=== PATIENT | female | born 1965 | race Caucasian/White ===

== ENCOUNTER 2017-10-19 05:20 | Inpatient (IN) | payer BC ==
[2017-10-19] MEDS ORDERED: Celecoxib 200 MG Cap PO ONE (05:30)
[2017-10-19] MEDS ORDERED: Scopolamine 1.5 MG Transdermal Patch TOP SCH (05:30)
[2017-10-19] MEDS ORDERED: Acetaminophen 500 MG Tab PO ONE (05:30)
[2017-10-19] MEDS ORDERED: Gabapentin 300 MG Cap PO ONE (05:30)
[2017-10-19] MEDS ORDERED: Dextrose 5%-Lactated Ringers 1,000 ML IV SCH (06:00)
[2017-10-19] MEDS ORDERED: cefOXitin 2 GM Vial ONE (06:56)
[2017-10-19] MEDS ORDERED: fentaNYL 250 MCG/5 ML SDV ONE ×2 (07:00→08:27)
[2017-10-19] MEDS ORDERED: Dexamethasone 4 MG/ML SDV ONE (07:01)
[2017-10-19] MEDS ORDERED: Neostigmine Methylsulfate 1 MG/ML 5 ML Syringe ONE (07:01)
[2017-10-19] MEDS ORDERED: Ondansetron 4 MG/2 ML SDV ONE (07:01)
[2017-10-19] MEDS ORDERED: Rocuronium 50 MG/5 ML Vial ONE ×2 (07:01→08:11)
[2017-10-19] MEDS ORDERED: Propofol 200 MG/20 ML SDV ONE (07:01)
[2017-10-19] MEDS ORDERED: Midazolam 1 MG/ML 2 ML SDV ONE (07:01)
[2017-10-19] MEDS ORDERED: Glycopyrrolate 0.2 MG/ML 5 ML MDV ONE (07:01)
[2017-10-19] MEDS ORDERED: Lidocaine 2% 100 MG/5 ML Syringe IVPUSH ONE (07:15)
[2017-10-19] MEDS ORDERED: Ropivacaine 56 ML, Dexamethasone 8 MG, EPINEPHrine 0.4 MG, Sodium Chloride 0.9% 21.6 ML NERVRT ONE ×4 (07:15)
[2017-10-19] MEDS ORDERED: Lidocaine 0.4%/D5W 2 GM/500 ML BAG IV SCH (07:15)
[2017-10-19] MEDS ORDERED: Ketamine 500 MG/5 ML MDV IV ONE (07:15)
[2017-10-19] MEDS ORDERED: cefOXitin 2 GM in Sodium Chloride 0.9% 50 ML IV ONE (07:15)
[2017-10-19] MEDS ORDERED: Lactated Ringers 1,000 ML ONE (07:21)
[2017-10-19] MEDS ORDERED: hydrOXYzine HCl 100 MG/2 ML SDV IM ONE (09:52)
[2017-10-19] MEDS ORDERED: fentaNYL 100 MCG/2 ML SDV IVPUSH ONE (10:21)
[2017-10-19] MEDS ORDERED: diphenhydrAMINE 50 MG/ML SDV IVPUSH PRN (12:00)
[2017-10-19] MEDS ORDERED: Ondansetron 4 MG/2 ML SDV IVPUSH PRN (12:00)
[2017-10-19] MEDS ORDERED: Labetalol 20 MG/4 ML Syringe IVPUSH PRN (12:00)
[2017-10-19] MEDS ORDERED: hydrOXYzine HCl 100 MG/2 ML SDV IM PRN (12:00)
[2017-10-19] MEDS ORDERED: Metoclopramide 10 MG/2 ML SDV IVPUSH PRN (12:00)
[2017-10-19] MEDS: cefOXitin 2 GM in Sodium Chloride 0.9% 50 ML IV SCH ×2 (12:29→17:29)
[2017-10-19] MEDS: Gabapentin 250 MG/5 ML Solution ML 470 ML Bottle PO SCH ×2 (13:15→20:16)
[2017-10-19] MEDS ORDERED: Pantoprazole 40 MG Vial IVPUSH SCH (14:00)
[2017-10-19] MEDS: Acetaminophen Soln 650 MG/20.3 ML UD Cup PO SCH ×2 (15:41→21:03)
[2017-10-19] MEDS: MVI, Adult with Vitamin K 10 ML, Thiamine 200 MG, Chromium/Copper/Mang/Selen/Zn 1 ML in... IV SCH ×4 (15:45)
[2017-10-19] MEDS: Heparin Sodium 5,000 Units/ML Vial SUBCUT SCH (17:29)
[2017-10-19] MEDS: HYDROmorphone 1 MG/ML Syringe IVPUSH PRN (21:30)
[2017-10-19] MEDS: Dextrose 5%-Lactated Ringers 1,000 ML IV SCH (21:33)
[2017-10-20] MEDS: cefOXitin 2 GM in Sodium Chloride 0.9% 50 ML IV SCH ×2 (00:03→06:07)
[2017-10-20] MEDS: HYDROmorphone 1 MG/ML Syringe IVPUSH PRN ×3 (00:48→08:29)
[2017-10-20] MEDS ORDERED: Iohexol 647 MG/ML 50 ML SDV PO STA (02:19)
[2017-10-20] MEDS: Acetaminophen Soln 650 MG/20.3 ML UD Cup PO SCH ×4 (04:05→22:01)
[2017-10-20] MEDS: Dextrose 5%-Lactated Ringers 1,000 ML IV SCH ×2 (04:06→13:02)
[2017-10-20] MEDS: Heparin Sodium 5,000 Units/ML Vial SUBCUT SCH ×2 (05:18→17:22)
[2017-10-20] MEDS ORDERED: Ondansetron 4 MG Tab.DIS PO PRN (07:01)
[2017-10-20] MEDS ORDERED: Albuterol/Ipratropium 3.0-0.5 MG/3 ML Neb Soln NEB PRN (07:04)
[2017-10-20] MEDS ORDERED: VARENICLINE PO SCH (07:15)
[2017-10-20] MEDS: Albuterol/Ipratropium 3.0-0.5 MG/3 ML Neb Soln NEB SCH ×4 (07:23→20:38)
--- NOTE | 2017-10-20 07:59 | PCM.SURGPN ---
- General Info Date of Service: 10/20/17 Date of Surgery/Procedure: 10/19/17 POD#: 1 Post-Op Diagnosis: Dawna-en-Y gastric bypass Functional Status: Reports: Pain Controlled, Tolerating Diet, Ambulating, Urinating, New Symptoms (Productive cough), Incentive Spirometry - Review of Systems HEENT: Reports: No Symptoms Pulmonary: Reports: Cough, Sputum Cardiovascular: Reports: No Symptoms Gastrointestinal: Reports: No Symptoms Genitourinary: Reports: No Symptoms Musculoskeletal: Reports: No Symptoms Neurological: Reports: No Symptoms, Weakness (as reaction to lidocaine, now improved) Psychiatric: Reports: No Symptoms - Patient Data Vitals - Most Recent: Last Vital Signs Temp 97.6 F 10/20/17 04:59 Pulse 95 10/20/17 07:29 Resp 16 10/20/17 06:05 BP 134/84 10/20/17 06:05 Pulse Ox 100 10/20/17 07:34 Weight - Most Recent: 244 lb 3.2 oz I&O - Last 24 Hours: Intake & Output 10/19/17 10/20/17 10/20/17 22:59 06:59 14:59 Intake Total 970 2100 Output Total 255 955 Balance 715 1145 Med Orders - Current: Current Medications Acetaminophen (Tylenol) 650 mg PO Q6H [facility] Last Admin: 10/20/17 04:05 Dose: 650 mg Albuterol/Ipratropium (Duoneb 3.0-0.5 Mg/3 Ml) 3 ml NEB QIDRT [facility] Last Admin: 10/20/17 07:23 Dose: 3 ml Albuterol/Ipratropium (Duoneb 3.0-0.5 Mg/3 Ml) 3 ml NEB ASDIRECTED PRN PRN Reason: WHEEZING Aspirin (Ecotrin) 325 mg PO DAILY [facility] Celecoxib (Celebrex) 200 mg PO DAILY@0800 [facility] Cyanocobalamin (Vitamin B12) 1,000 mcg IM ONETIME ONE Stop: 10/21/17 09:01 Diphenhydramine HCl (Benadryl) 25 - 50 mg IVPUSH Q4H PRN PRN Reason: ITCHING Gabapentin (Neurontin) 300 mg PO TID [facility] Last Admin: 10/19/17 20:16 Dose: 300 mg Heparin Sodium (Porcine) (Heparin Sodium) 5,000 units SUBCUT Q12H [facility] Last Admin: 10/20/17 05:18 Dose: 5,000 units Hydromorphone HCl (Dilaudid) 1 mg IVPUSH Q1H PRN PRN Reason: Pain Last Admin: 10/20/17 04:33 Dose: 1 mg Hydromorphone HCl (Dilaudid) 2 - 4 mg PO Q4H PRN PRN Reason: Pain Hydroxyzine HCl (Vistaril) 75 - 100 mg IM Q4H PRN PRN Reason: pain Dextrose/Lactated Ringer's (Dextrose 5%-Lactated Ringers) 1,000 mls @ 175 mls/ hr IV ASDIRECTED [facility] Last Admin: 10/20/17 04:06 Dose: 175 mls/hr Multivitamins/Minerals 10 ml/Thiamine HCl 200 mg/ Chromium/Copper/Manganese/ Seleni/Zn 1 ml/ Dextrose/Lactated Ringer's 1,013 mls @ 175 mls/hr IV DAILY@ 1600 [facility] Last Admin: 10/19/17 15:45 Dose: 175 mls/hr Labetalol HCl (Normodyne) 5 - 15 mg IVPUSH Q1H PRN PRN Reason: SBP over 160 OR DBP over 95 Metoclopramide HCl (Reglan) 10 mg IVPUSH Q6H PRN PRN Reason: NAUSEA NOT CONTROL BY ZOFRAN Miscellaneous Information (Remove Patch) 1 ea TRDERM ONETIME ONE Stop: 10/21/17 10:01 Scopolamine Patch (Check) 1 each TOP DAILY [facility] Stop: 10/21/17 12:01 Ondansetron HCl (Zofran) 4 mg IVPUSH Q4H PRN PRN Reason: Nausea/Vomiting Last Admin: 10/20/17 05:31 Dose: 4 mg Ondansetron HCl (Zofran Odt) 4 mg PO Q4H PRN PRN Reason: Nausea/Vomiting Pantoprazole Sodium (Protonix Iv) 40 mg IVPUSH Q24H [facility] Last Admin: 10/19/17 13:15 Dose: 40 mg Scopolamine (Transderm-Scop) 1.5 mg TOP Q72H [facility] Stop: 10/21/17 10:00 Last Admin: 10/19/17 05:53 Dose: 1.5 mg Discontinued Medications Acetaminophen (Tylenol Extra Strength) 1,000 mg PO ONETIME ONE Stop: 10/19/17 05:31 Last Admin: 10/19/17 05:53 Dose: 1,000 mg Cefoxitin Sodium (Mefoxin) Confirm Administered Dose 2 gm .ROUTE .STK-MED ONE Stop: 10/19/17 06:57 Last Admin: 10/19/17 07:58 Dose: 2 gm Celecoxib (Celebrex) 200 mg PO ONETIME ONE Stop: 10/19/17 05:31 Last Admin: 10/19/17 05:53 Dose: 200 mg Ropivacaine 56 ml/Dexamethasone 8 mg/Epinephrine HCl 0.4 mg/ Sodium Chloride 21.6 ml 0 ml NERVRT ONETIME ONE Stop: 10/19/17 07:16 Last Admin: 10/19/17 07:49 Dose: 2 syringe Dexamethasone (Dexamethasone) Confirm Administered Dose 4 mg .ROUTE .STK-MED ONE Stop: 10/19/17 07:02 Fentanyl (Sublimaze) Confirm Administered Dose 250 mcg .ROUTE .ST-MED ONE Stop: 10/19/17 07:01 Fentanyl (Sublimaze) Confirm Administered Dose 250 mcg .ROUTE .ST-MED ONE Stop: 10/19/17 08:28 Fentanyl (Sublimaze) 50 mcg IVPUSH ONETIME ONE Stop: 10/19/17 10:22 Last Admin: 10/19/17 10:24 Dose: 50 mcg Gabapentin (Neurontin) 300 mg PO ONETIME ONE Stop: 10/19/17 05:31 Last Admin: 10/19/17 05:53 Dose: 300 mg Glycopyrrolate (Robinul) Confirm Administered Dose 1 mg .ROUTE .STK-MED ONE Stop: 10/19/17 07:02 Hydroxyzine HCl (Vistaril) 100 mg IM ONETIME ONE Stop: 10/19/17 09:53 Last Admin: 10/19/17 09:58 Dose: 100 mg Dextrose/Lactated Ringer's (Dextrose 5%-Lactated Ringers) 1,000 mls @ 100 mls/ hr IV ASDIRECTED [facility] Last Admin: 10/19/17 06:53 Dose: 100 mls/hr Cefoxitin Sodium 2 gm/ Sodium (Chloride) 50 mls @ 100 mls/hr IV ONETIME ONE Stop: 10/19/17 07:44 Last Admin: 10/19/17 07:17 Dose: 100 mls/hr Lidocaine HCl/Dextrose (Lidocaine 2 Gm/D5w 500 Ml) 2 gm in 500 mls @ 30 mls/hr IV .[id number] [facility] PRN Reason: 2 MG/MIN Stop: 10/20/17 10:00 Last Admin: 10/19/17 12:56 Dose: Not Given Ketamine HCl 100 mg/ Sodium (Chloride) 100 mls @ 15.7 mls/hr IV ASDIRECTED [facility] Stop: 10/19/17 09:15 Lactated Ringer's (Ringers, Lactated) Confirm Administered Dose 1,000 mls @ as directed .ROUTE .STK-MED ONE Stop: 10/19/17 07:22 Cefoxitin Sodium 2 gm/ Sodium (Chloride) 50 mls @ 100 mls/hr IV Q6H [facility] Stop: 10/20/17 06:59 Last Admin: 10/20/17 06:07 Dose: 100 mls/hr Iohexol (Omnipaque-300) 50 ml PO .ASDIRECTED [facility] Stop: 10/20/17 02:20 Last Admin: 10/20/17 02:27 Dose: 50 ml Ketamine HCl (Ketalar) 26 mg IV ONETIME ONE Stop: 10/19/17 07:16 Last Admin: 10/19/17 12:56 Dose: Not Given Lidocaine HCl (Xylocaine 2%) 114 mg IVPUSH ONETIME ONE Stop: 10/19/17 07:16 Last Admin: 10/19/17 12:57 Dose: Not Given Midazolam HCl (Versed 1 Mg/Ml) Confirm Administered Dose 2 mg .ROUTE .STK-MED ONE Stop: 10/19/17 07:02 Neostigmine Methylsulfate (Neostigmine) Confirm Administered Dose 5 mg .ROUTE .STK-MED ONE Stop: 10/19/17 07:02 Ondansetron HCl (Zofran) Confirm Administered Dose 4 mg .ROUTE .STK-MED ONE Stop: 10/19/17 07:02 Propofol (Diprivan 20 Ml) Confirm Administered Dose 200 mg .ROUTE .STK-MED ONE Stop: 10/19/17 07:02 Rocuronium Hurley (Zemuron) Confirm Administered Dose 50 mg .ROUTE .STK-MED ONE Stop: 10/19/17 07:02 Rocuronium [place]ley (Zemuron) Confirm Administered Dose 50 mg .ROUTE .STK-MED ONE Stop: 10/19/17 08:12 - Exam Wound/Incisions: Healing Well, Drainage (90 mL serosanguinous fluid in AQUILINO) Quality Assessment: Supplemental Oxygen General: Alert, Oriented, No Acute Distress Neck: Supple Lungs: Wheezing (inspiratory and expiratory throughout all lung [place]) Cardiovascular: Regular Rate, Regular Rhythm, No Murmurs GI/Abdominal Exam: Normal Bowel Sounds Skin: Warm, Dry, Intact Neurological: No New Focal Deficit Psy/Mental Status: Alert, Normal Affect, Normal Mood - Problem List Review Problem List Initiated/Reviewed/Updated: Yes - My Orders Last 24 Hours: Active Orders 24 hr Category Date Time Status Patient Status [ADT] Routine ADT 10/19/17 09:20 Active Ambulate [RC] QID Care 10/19/17 11:52 Active Cardiac Monitoring Discontinue [RC] Click to Edit Care 10/20/17 09:00 Active Cardiac Monitoring [RC] .As Directed Care 10/19/17 11:52 Active Communication Order [RC] ASDIRECTED Care 10/20/17 06:56 Active Communication Order [RC] ASDIRECTED Care 10/21/17 04:00 Active Communication Order [RC] Q4H Care 10/19/17 11:52 Active Communication Order [RC] ROUTINE Care 10/19/17 11:52 Active Drain Management [RC] ASDIRECTED Care 10/19/17 11:52 Active Insert Urinary Catheter [OM.PC] Per Unit Routine Care 10/19/17 11:52 Ordered Intake and Output [RC] ASDIRECTED Care 10/19/17 11:52 Active May Shower [RC] ASDIRECTED Care 10/20/17 06:56 Active Notify Provider Intake and Out [RC] ASDIRECTED Care 10/19/17 11:52 Active Notify Provider [RC] PRN Care 10/19/17 11:52 Active Oxygen Therapy [RC] ASDIRECTED Care 10/19/17 11:52 Active Pulse Oximetry [RC] ASDIRECTED Care 10/19/17 11:52 Active RT Aerosol Therapy [RC] ASDIRECTED Care 10/20/17 06:58 Active RT BiPAP/CPAP [RC] ASDIRECTED Care 10/19/17 11:52 Active RT Incentive Spirometry [RC] Q1HWA Care 10/19/17 11:52 Active Turn, Cough, Deep Breathe [RC] Q1HWA Care 10/19/17 11:52 Active Up to Chair [RC] QID Care 10/19/17 11:52 Active Vital Signs [RC] PER UNIT ROUTINE Care 10/19/17 11:52 Active Consult to Bariatric Services [CONS] Routine Cons 10/19/17 11:52 Active Consult to Customer Equipment Engineer [CONS] Routine Cons 10/19/17 11:52 Active Consult to Pharmacy [CONS] Routine Cons 10/19/17 11:52 Active Bariatric Diet [DIET] Diet 10/19/17 Lunch Active Bariatric Diet [DIET] Diet 10/20/17 Breakfast Active UGI wo KUB [CR] Timed Exams 10/20/17 04:00 Taken Acetaminophen [Tylenol] Med 10/19/17 16:00 Active 650 mg PO Q6H Albuterol/Ipratropium [DuoNeb 3.0-0.5 MG/3 ML] Med 10/20/17 07:04 Active 3 ml NEB ASDIRECTED PRN Albuterol/Ipratropium [DuoNeb 3.0-0.5 MG/3 ML] Med 10/20/17 07:00 Active 3 ml NEB QIDRT Aspirin [Ecotrin] Med 10/20/17 09:00 Active 325 mg PO DAILY Celecoxib [CeleBREX] Med 10/20/17 08:00 Active 200 mg PO DAILY@0800 Cyanocobalamin (Vitamin B12) [Vitamin B12] Med 10/21/17 09:00 Once 1,000 mcg IM ONETIME ONE Dextrose 5%-Lactated Ringers 1,000 ml Med 10/19/17 11:45 Active IV ASDIRECTED Gabapentin [Neurontin] Med 10/19/17 14:00 Active 300 mg PO TID HYDROmorphone [Dilaudid] Med 10/19/17 21:19 Active 1 mg IVPUSH Q1H PRN HYDROmorphone [Dilaudid] Med 10/20/17 06:56 Active 2 - 4 mg PO Q4H PRN Heparin Sodium Med 10/19/17 18:00 Active 5,000 units SUBCUT Q12H Labetalol [Normodyne] Med 10/19/17 12:00 Active 5 - 15 mg IVPUSH Q1H PRN MVI, Adult with Vitamin K [Infuvite Adult] 10 ml Med 10/19/17 16:00 Active Thiamine [Vitamin B-1] 200 mg Chromium/Copper/Toro/Selen/Zn [Multitrace-5 Concentrate ] 1 ml Dextrose 5%-Lactated Ringers 1,000 ml IV DAILY@1600 Metoclopramide [Reglan] Med 10/19/17 12:00 Active 10 mg IVPUSH Q6H PRN Non-Formulary Medication [NF Drug] Med 10/19/17 12:00 Active 1 each TOP DAILY Ondansetron [Zofran ODT] Med 10/20/17 07:01 Active 4 mg PO Q4H PRN Ondansetron [Zofran] Med 10/19/17 12:00 Active 4 mg IVPUSH Q4H PRN Pantoprazole [ProTONIX IV] Med 10/19/17 14:00 Active 40 mg IVPUSH Q24H Remove Patch Med 10/21/17 10:00 Once 1 ea TRDERM ONETIME ONE diphenhydrAMINE [Benadryl] Med 10/19/17 12:00 Active 25 - 50 mg IVPUSH Q4H PRN hydrOXYzine HCl [Vistaril] Med 10/19/17 12:00 Active 75 - 100 mg IM Q4H PRN Abdominal Binder [OM.PC] Routine Oth 10/19/17 11:52 Ordered PT Screening [OM.PC] Routine Oth 10/19/17 11:52 Active Remove Dressing [OM.PC] Routine Oth 10/20/17 07:02 Ordered Sequential Compression Device [OM.PC] Routine Oth 10/19/17 11:52 Ordered Specialty Bed [OM.PC] Routine Oth 10/19/17 11:52 Ordered Resuscitation Status Routine Resus Stat 10/19/17 11:52 Ordered Medication Orders Acetaminophen (Tylenol) 650 mg PO Q6H [facility] Last Admin: 10/20/17 04:05 Dose: 650 mg Admin: 10/19/17 21:03 Dose: 650 mg Admin: 10/19/17 15:41 Dose: 650 mg Albuterol/Ipratropium (Duoneb 3.0-0.5 Mg/3 Ml) 3 ml NEB QIDRT [facility] Last Admin: 10/20/17 07:23 Dose: 3 ml Albuterol/Ipratropium (Duoneb 3.0-0.5 Mg/3 Ml) 3 ml NEB ASDIRECTED PRN PRN Reason: WHEEZING Aspirin (Ecotrin) 325 mg PO DAILY [facility] Celecoxib (Celebrex) 200 mg PO DAILY@0800 [facility] Cyanocobalamin (Vitamin B12) 1,000 mcg IM ONETIME ONE Stop: 10/21/17 09:01 Diphenhydramine HCl (Benadryl) 25 - 50 mg IVPUSH Q4H PRN PRN Reason: ITCHING Gabapentin (Neurontin) 300 mg PO TID [facility] Last Admin: 10/19/17 20:16 Dose: 300 mg Admin: 10/19/17 13:15 Dose: 300 mg Heparin Sodium (Porcine) (Heparin Sodium) 5,000 units SUBCUT Q12H [facility] Last Admin: 10/20/17 05:18 Dose: 5,000 units Admin: 10/19/17 17:29 Dose: 5,000 units Hydromorphone HCl (Dilaudid) 1 mg IVPUSH Q1H PRN PRN Reason: Pain Last Admin: 10/20/17 04:33 Dose: 1 mg Admin: 10/20/17 00:48 Dose: 1 mg Admin: 10/19/17 21:30 Dose: 1 mg Hydromorphone HCl (Dilaudid) 2 - 4 mg PO Q4H PRN PRN Reason: Pain Hydroxyzine HCl (Vistaril) 75 - 100 mg IM Q4H PRN PRN Reason: pain Dextrose/Lactated Ringer's (Dextrose 5%-Lactated Ringers) 1,000 mls @ 175 mls/ hr IV ASDIRECTED [facility] Last Admin: 10/20/17 04:06 Dose: 175 mls/hr Infusion: 10/20/17 03:16 Dose: 175 mls/hr Admin: 10/19/17 21:33 Dose: 175 mls/hr Multivitamins/Minerals 10 ml/Thiamine HCl 200 mg/ Chromium/Copper/Manganese/ Seleni/Zn 1 ml/ Dextrose/Lactated Ringer's 1,013 mls @ 175 mls/hr IV DAILY@ 1600 [facility] Last Admin: 10/19/17 15:45 Dose: 175 mls/hr Labetalol HCl (Normodyne) 5 - 15 mg IVPUSH Q1H PRN PRN Reason: SBP over 160 OR DBP over 95 Metoclopramide HCl (Reglan) 10 mg IVPUSH Q6H PRN PRN Reason: NAUSEA NOT CONTROL BY ZOFRAN Miscellaneous Information (Remove Patch) 1 ea TRDERM ONETIME ONE Stop: 10/21/17 10:01 Scopolamine Patch (Check) 1 each TOP DAILY [facility] Stop: 10/21/17 12:01 Ondansetron HCl (Zofran) 4 mg IVPUSH Q4H PRN PRN Reason: Nausea/Vomiting Last Admin: 10/20/17 05:31 Dose: 4 mg Ondansetron HCl (Zofran Odt) 4 mg PO Q4H PRN PRN Reason: Nausea/Vomiting Pantoprazole Sodium (Protonix Iv) 40 mg IVPUSH Q24H [facility] Last Admin: 10/19/17 13:15 Dose: 40 mg Scopolamine (Transderm-Scop) 1.5 mg TOP Q72H [facility] Stop: 10/21/17 10:00 Last Admin: 10/19/17 05:53 Dose: 1.5 mg - Assessment Assessment (Free Text/Narrative):: Hiram Carter is a 52 yo female POD1 S/P dawna-en-y gastric bypass. Barium swallow x-ray looked good this morning with no concerns for stricture. Pain: pt had "reaction" to lidocaine in which she felt generalized muscle weakness (evidenced by difficulty walking and difficulty holding a cup); pain now well controlled with scheduled Tylenol and celebrex and 3 IV pushes of dilaudid; Respiratory: pt complains of powerful, painful cough (4-6/10), alleviated with pain medication; on 2L o2 via nasal cannula; Diet: tolerated bariatric clear liquids Ambulation: pt ambulating well Urinating well; passing flatus. Dressings/drainage: clean, dry, and intact; draining 90mL serosanguinous fluid via AQUILINO drain Dispo: doing well, expect discharge tomorrow - Plan Plan (Free Text/Narrative):: Pain: will transition to oral dilaudid today (PRN) in addition to scheduled Tylenol and celebrex Respiratory: encourage incentive spirometry; add on nebulizers qid and prn; order RT consult Diet: transition to Step 2 diet without cereal; order dietary consult Ambulation: encourage pt to be up and walking around at least 6 times per day Dressings/drainage: pt can take dressings off and shower Dispo: expect discharge tomorrow
[2017-10-20] MEDS: Aspirin 325 MG Tab.EC PO SCH (08:30)
[2017-10-20] MEDS: Celecoxib 200 MG Cap PO SCH (08:30)
[2017-10-20] MEDS: Gabapentin 250 MG/5 ML Solution ML 470 ML Bottle PO SCH ×3 (08:30→20:38)
[2017-10-20] MEDS: SCOPOLAMINE PATCH CHECK TOP SCH (08:31)
--- NOTE | 2017-10-20 08:40 | CR ---
UGI wo KUB HISTORY: eval R -Y GBP FINDINGS: After administration of oral contrast, upright views were obtained. Post operative changes gastric bypass. Surgical drains in place. No evidence for leak. Contrast passes freely into proximal small bowel loops. IMPRESSION: No evidence for leak or obstruction.
[2017-10-20] MEDS: HYDROmorphone 2 MG Tab PO PRN ×3 (11:46→19:54)
--- NOTE | 2017-10-20 13:48 | OR ---
DATE OF PROCEDURE: 10/19/2017 PREOPERATIVE DIAGNOSIS: Morbid obesity. POSTOPERATIVE DIAGNOSES: 1. Morbid obesity. 2. Marked hepatomegaly. 3. Peritoneal nodule over lesser omentum adjacent to the gastric cardia. OPERATIVE PROCEDURES: Diagnostic laparoscopy with: 1. Laparoscopic Danielito-en-Y gastric bypass with long limb gastroenterostomy (87329). 2. Eric-Cut needle liver biopsy (52608). 3. Excision of peritoneal nodule (3 mm) overlying the lesser omentum adjacent to gastric cardia (79172). ANESTHESIA: General. ASSISTANTS: Robyn Freeman PA-C, and DEWAYNE Ogden3. INDICATION FOR PROCEDURE: This is a 52-year-old female presenting with longstanding morbid obesity and increasingly significant comorbidities. After preoperative evaluation and discussion, she wished to proceed with a gastric bypass procedure. Potential risks including bleeding, infection, leaks from various GI tract closures, problems with bowel obstruction over time, as well as possibility of cardiopulmonary, septic, or hemorrhagic complications leading to were all discussed, and the patient wishes to proceed. DETAILS OF PROCEDURE: The patient was taken to the operating room and, after general endotracheal anesthesia was induced, was placed in a lithotomy position and the abdomen prepped and draped. At 15 cm inferior, 5 cm left of xiphoid process, transverse incision was made and peritoneal cavity entered under direct vision with Optiview trocar and the peritoneal cavity inflated to 15 mmHg pressure with CO2. Laparoscope was then reinserted. No underlying trocar insertion site injuries were seen. Following this, bilateral subcostal transverse abdominis plane blocks were placed with direct visualization of the needle in the transverse abdominis plane and standard injections placed on the each side. Following this, 5 additional trocars were initially placed. Due to the marked hepatomegaly, 1 additional 5- mm trocar was also then placed to facilitate adequate retraction of the liver. After the placement of the trocars and general exploration undertaken, the patient was noted to have a quite striking hepatomegaly with the left lobe of the liver coming down in the midline, perhaps a handsbreadth below the xiphoid. It was felt that it was grossly fatty infiltrated, but was not grossly cirrhotic, and there was no associated portal hypertension evident within the mesenteric venous system. Eric-Cut biopsies were obtained from left lobe of the liver. Minimal bleeding from the biopsy sites was controlled with electrocautery. At this point, the omentum was divided in the midline up to the level of the transverse colon. This allowed identification of the small bowel to the ligament of Treitz. Small bowel was traced out 200 cm distal to that point, was divided transversely with a INGRID stapler. Small bowel was then traced out additional 150 cm, where the [id number] enteroenterostomy was accomplished with internal firing of the Endo-INGRID 60 mm stapler, and common opening was then closed transversely with the same stapler, angles anastomosed, and mesenteric defect approximated with some 0 Ethibond stitch, along with fibrin sealant. The divided end of the Danielito limb was then from the mesentery for a few centimeters, which allowed an antecolic position of the Danielito limb up to the level of the gastroesophageal junction without tension. The liver was then retracted initially, but the epigastric trocar site retractor was felt not to be entirely adequate. The initial 5 mm trocar placed in the left mid subcostal area was also used to retract the liver, and for a working trocar, 1 additional 5 mm trocar was then placed somewhat inferior to that subcostal trocar. The patient was noted to have a roughly 3 mm nodule located on the lesser omentum adjacent to the gastric cardia. This was excised with a small amount of adjacent fatty tissue around it with Harmonic scalpel and sent for histologic evaluation, and no other similar abnormalities were noted within the peritoneal cavity. The patient was noted not to have any significant hiatal hernia. The gastrointestinal balloon catheter was then inflated to 15 mL and pulled up snugly against the EG junction. The gastric wall over the apex of the balloon was then marked with electrocautery and the balloon catheter deflated and withdrawn. The lesser omental tissue adjacent to the gastric cardia was then incised, allowing dissection behind the stomach at that level. Pouch formation was initiated with a transverse firing of INGRID stapler at the level of the cauterized princess on the gastric cardia, and then completed with 3 additional INGRID firings, up to and through the angle of His. Upon completion of the pouch, both staple lines were noted to be intact. The anvil of a 25 mm EEA stapler was then attached to a [place] sump type tube. The latter was brought down through the mouth and taken out through a small opening in the gastric pouch, allowing the anvil likewise to be pulled down to within the gastric pouch. The divided end of Danielito limb was then opened, and the main body of the EEA stapler was passed up into the small bowel, brought up to the anvil and united with it, thus creating the gastrojejunostomy. Upon removal of stapler, double donuts of mucosa were noted within it. The small bowel was closed off with a vascular staple line. Gastrojejunostomy was then reinforced with some 3-0 Vicryl seromuscular stitch, along with fibrin sealant. The leak test was accomplished with injection of 120 mL of air in the gastric pouch while submerged with cefoxitin-containing saline solution. No leaks were identified. One Denis-Richter drain was then placed through the left lateral trocar site and up against the gastrojejunostomy and, from there, into the splenic fossa. With no further problems noted, the trocars were removed and the peritoneal cavity deflated. Incisions were closed with some 4-0 Vicryl skin stitch and dressing applied. The patient was taken to the recovery room in satisfactory condition. Physician financial administrative assistant, Robyn Freeman PA-C, played an essential role in assisting in this case, helping to position the patient, retract structures as needed, as well as suturing and cutting sutures as indicated. Her presence improved the patient's safety and decreased operative time. Stew Duran MD /[id number]
[2017-10-20] MEDS ORDERED: Pantoprazole 40 MG Delayed-Release Granules 1 Packet PO SCH (14:00)
[2017-10-20] MEDS: MVI, Adult with Vitamin K 10 ML, Thiamine 200 MG, Chromium/Copper/Mang/Selen/Zn 1 ML in... IV SCH ×4 (15:54)
[2017-10-21] MEDS: HYDROmorphone 2 MG Tab PO PRN ×2 (01:56→09:03)
[2017-10-21] MEDS: Acetaminophen Soln 650 MG/20.3 ML UD Cup PO SCH ×2 (04:20→06:05)
[2017-10-21] MEDS: Heparin Sodium 5,000 Units/ML Vial SUBCUT SCH (06:36)
[2017-10-21] MEDS: Albuterol/Ipratropium 3.0-0.5 MG/3 ML Neb Soln NEB SCH (07:58)
[2017-10-21] MEDS: Aspirin 325 MG Tab.EC PO SCH (08:31)
[2017-10-21] MEDS: Celecoxib 200 MG Cap PO SCH (08:31)
[2017-10-21] MEDS: Gabapentin 250 MG/5 ML Solution ML 470 ML Bottle PO SCH (08:32)
[2017-10-21] MEDS: SCOPOLAMINE PATCH CHECK TOP SCH (08:32)
[2017-10-21] MEDS ORDERED: Cyanocobalamin (Vitamin B12) 1,000 MCG/ML SDV IM ONE (09:00)
--- NOTE | 2017-10-22 11:03 | DISCH ---
ADMISSION DIAGNOSES: 1. Morbid obesity. 2. BMI 43.3. 3. Lupus. DISCHARGE DIAGNOSES: 1. Laparoscopic Danielito-en-Y gastric bypass surgery, liver biopsy, excision of peritoneal nodule for morbid obesity, peritoneal nodule, and hepatomegaly. 2. Tight productive cough. DATE OF SURGERY: 10/19/2017, by Stew Duran M.D. HISTORY: Carole Lowe is a 52-year-old female with longstanding history of morbid obesity and increasing comorbidities. After preoperative evaluation, discussion of possible risks and possible complications, she wished to proceed with surgical procedure. HOSPITAL COURSE: Carole had her surgery on 10/19/2017. She had no operative complications. On postop day #1, her upper GI was normal. She was started on step-2 gastric bypass diet with no cereal. She also developed a cough that was productive with clear phlegm. She also had some wheezing and did require DuoNeb nebulizer treatments. Her oxygen was 87% while on a walk, but maintained 91 and 92 with 1 to 2 L of O2. She had dietary education. Her pain was managed with Celebrex, gabapentin, and Tylenol while in the hospital; for breakthrough pain, she did take Dilaudid 2 mg. On postop day #2, she was ready to be discharged to home. PHYSICAL EXAMINATION: GENERAL: Carole Lowe is a 52-year-old female. VITAL SIGNS: Height is 5 feet and 3 inches, weight is 244 pounds, BMI is 43. TPR is 97.9, 84, and 16. Blood pressure 132/75. HEENT: Negative. NECK: Supple. HEART: Regular rate and rhythm. LUNGS: Reveal fair air exchange in bases. She does have rhonchi with coughing and faint wheezing. ABDOMEN: Incisions look good. AQUILINO drain will be removed prior to discharge. Abdominal binder has been on. EXTREMITIES: Without peripheral edema. DISPOSITION: Discharged to home. CONDITION: Stable and improving. FOLLOWUP APPOINTMENT: With Robyn Freeman PA-C, at [facility] on 10/27/2017 at 10:00 a.m. HOME MEDICATIONS: 1. Tylenol 650 mg q.6 hours. 2. DuoNeb 3.0-0.5 mg/3 mL, 3 mL nebulizer q.4 hours p.r.n. for wheezing, #50. 3. Dilaudid 2 mg 1 to 2 every 4 hours p.r.n. for pain, #30. 4. Zofran ODT 4 mg q.4 hours p.r.n. for nausea, #30. 5. She is to resume her home medication of Chantix as directed and Lipitor 20 mg orally daily. DIET: Diet after discharge is step 2 gastric bypass diet with no cereal until 11/02/2017. ACTIVITY: No lifting greater than 10 pounds for 2 weeks. DRIVING: Do not drive for 1 week. SHOWER/BATHING: May shower. Notify provider if any fever, increased pain, nausea, or vomiting. Wear abdominal binder for 2 weeks and then as tolerated. SPECIAL INSTRUCTIONS: Use incentive spirometer 10 times every hour while awake for 1 week. Keep a record of protein and liquid intake and bring to clinic appointments.
== END 2017-10-21 09:47 | disposition home or self-care (01) | DRG 403 ==
LOC: EDBD → JP.SDSSCHI 05:20 → JP.SDS 05:20 → EDBD 05:20 → EDSTATUS 07:30 → JP.2SS 09:20
PROVIDERS: ADMIT Surgery; ATTEND Surgery
PROC: 0D164ZA Bypass Stomach to Jejunum, Percutaneous Endoscopic Approach (ICD-10-PCS; principal; 2017-10-19)
PROC: 3E0T3BZ Introduction of Anesthetic Agent into Peripheral Nerves and Plexi, Percutaneous Approach (ICD-10-PCS; 2017-10-19)
PROC: 0DBU4ZZ Excision of Omentum, Percutaneous Endoscopic Approach (ICD-10-PCS; 2017-10-19)
PROC: 0FB24ZX Excision of Left Lobe Liver, Percutaneous Endoscopic Approach, Diagnostic (ICD-10-PCS; 2017-10-19)
DX: E66.01 Morbid (severe) obesity due to excess calories (principal); Z68.41 Body mass index [BMI] 40.0-44.9, adult; Z87.891 Personal history of nicotine dependence; Z91.030 Bee allergy status; Z79.82 Long term (current) use of aspirin; Z91.09 Other allergy status, other than to drugs and biological substances; K66.8 Other specified disorders of peritoneum; K76.0 Fatty (change of) liver, not elsewhere classified
CPT/HCPCS: 36415; 74240; 74240-26; 82962; 86850; 86900; 86901; 88305; 88307; 88313; 94640; 94762; A9270-GY; C9113; J0171; J0694; J1100; J1170; J1644; J2001; J2250; J2405; J2704; J2710; J2795; J3010; J3410; J3411; J3420; J7030; J7042; J7050; J7120; J7620; Q9967